=== PATIENT | female | born 1975 | race Caucasian/White ===

== ENCOUNTER 2018-05-16 13:58 | Emergency (ER) | payer BC ==
[2018-05-16] MEDS ORDERED: Albuterol/Ipratropium NEB.SOL* Albuterol 2.5 MG/Ipratropium 0.5 MG 3 ML INH ONE (15:38)
[2018-05-16] MEDS ORDERED: methylPREDNISolone SOD 40 MG* 1 ML VIAL IM ONE (15:45)
--- NOTE | 2018-05-16 15:53 | ED ---
Asthma - HPI Summary HPI Summary: Patient presents with 12 day history of coughing and chest tightness from poorly controlled asthma. She reports she was seen on May 06 ( a day after sx started) at her PCP's office - she started with symptoms of nasal congestion , sore throat, low grade fever of 100F and a dry cough. She was initially told this was viral in nature and prescribed tessalon perles and a medrol dose jia. 5 days later, she was told she may have been exposed to a bacterial infection and was offered an antibiotic which she started. She took 4 days of Zithromax but was not able to complete the course as she had been coughing so much she was causing herself to gag and vomit (last pill was yesterday). Her throat is raw and tight from poor PO intake due to persistent coughing and intermittent vomiting. No fever since onset of sx. She's had intermittent productive cough however has not had productive cough recently. She feels wiped out from excessive coughing. Reports Tessalon Perles have been helpful intermittently and Medrol dose pack (24mg on day 1 and reduces each day - has not completed the course). Doesn't feel that made any change. She uses albuterol nebulizers at home and gets temporary relief from these. She does admit she has scented aerosols etc. in her house which are used from time to time. They keep the house at about 70 F although it does drop down to 65F at times which the pt reports it too cold. Patient denies smoking, hemoptysis, headache, neck pain or stiffness, abdominal pain, increased heart rate, sweats, dizziness or syncope. She admits she takes metoprolol for an arrhythmia and this has been well controlled throughout the course of her illness. 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 Immunizations are up-to- date. Overall her asthma is fairly well controlled. She takes cetirizine, singulair, flonase and uses ventolin as needed. Admits she uses her albuterol neb at home a few times a year. No h/o recurrent bronchitis or PNA. Does have h/o 2nd hand smoke exposure as a child. Most recent CXR on 05/06/2018 was neg for PNA but pos for interstitial lung dz. She denies hemoptysis, use of hormones, recent travel/trauma, calf/leg pain, h/ o cancer or clotting d/o. - History of Current Complaint Chief Complaint: EDNauseaVomitDiarrh Stated Complaint: NAUSEA/VOMITING/COUGH Time Seen by Provider: 05/16/18 15:01 Hx Obtained From: Patient Hx Last Menstrual Period: one week ago Pain Intensity: 4 - Allergy/Home Medications Allergies/Adverse Reactions: Allergies Allergy/AdvReac Type Severity Reaction Status Date / Time apple Allergy Anaphylatic Verified 05/16/18 16:14 Shock bacitracin Allergy Blisters Verified 05/16/18 14:06 [From Neosporin ([id number])] egg Allergy Wheezing Verified 05/16/18 16:15 neomycin Allergy Blisters Verified 05/16/18 14:06 [From Neosporin ([id number])] polymyxin B Allergy Blisters Verified 05/16/18 14:06 [From Neosporin ([id number])] soy Allergy Wheezing Verified 05/16/18 16:15 Sulfa (Sulfonamide Allergy Hives Verified 05/16/18 14:06 Antibiotics) wheat Allergy Anaphylatic Verified 05/16/18 16:15 Shock Home Medications: Home Medications Aspirin 81 mg PO DAILY 05/16/18 [History Confirmed 05/16/18] Atorvastatin* 20 mg PO DAILY 05/16/18 [History Confirmed 05/16/18] Medrol Dosepak 4 MG* 4 mg PO DAILY 05/16/18 [History Confirmed 05/16/18] Metoprolol Succinate XL TAB* 25 mg PO DAILY 05/16/18 [History Confirmed 05/16/18 ] Singulair 10 MG TAB* 10 mg PO DAILY 05/16/18 [History Confirmed 05/16/18] Tessalon 100 MG CAP* 100 mg PO TID 05/16/18 [History Confirmed 05/16/18] Zithromax TAB (Z-JIA) 250 mg #6 tabs 250 mg PO DAILY 05/16/18 [History Confirmed 05/16/18] Zyrtec 10 mg PO DAILY 05/16/18 [History Confirmed 05/16/18] PMH/Surg Hx/FS Hx/Imm Hx Previously Healthy: Yes Endocrine/Hematology History: Denies: Hx Anticoagulant Therapy, Hx Blood Disorders, Hx Diabetes Cardiovascular History: Denies: Hx Hypertension, Hx Pacemaker/ICD Comment Only: Other Cardiovascular Problems/Disorders - arrhythmia Respiratory History: Reports: Hx Asthma - 20+ YEARS - uses 3-4 meds to control GI History: Reports: Hx Gastroesophageal Reflux Disease - h/o before identifying food allergies 15 yrs ago - none now History: Denies: Hx Renal Disease Sensory History: Reports: Hx Contacts or Glasses Denies: Hx Hearing Aid Opthamlomology History: Reports: Hx Contacts or Glasses Psychiatric History: Reports: Hx Depression - h/o inpt care Denies: Hx Panic Disorder - Surgical History Surgery Procedure, Year, and Place: wisdom teeth. D&C 2016 - Immunization History Immunizations Up to Date: Yes Infectious Disease History: No Infectious Disease History: Denies: History Other Infectious Disease, Traveled Outside the [place] in Last 30 Days - Family History Known Family History: Positive: Other - sister - Dawn Hdzlo - Social History Occupation: Employed Full-time Lives: With Family Alcohol Use: Rare Hx Substance Use: No Substance Use Type: Reports: None Hx Tobacco Use: No - exposure to 2nd hand smoke childhood Smoking Status (MU): Never Smoked Tobacco Review of Systems Constitutional: Other - "wiped out from coughing and puking" Negative: Fever, Chills Eyes: Negative Positive: Sore Throat. Negative: Ear Ache, Nasal Discharge Cardiovascular: Negative Negative: Palpitations, Chest Pain Positive: Cough Positive: Vomiting. Negative: Abdominal Pain, Diarrhea, Nausea Genitourinary: Negative Musculoskeletal: Negative Skin: Negative Neurological: Negative Psychological: Normal All Other Systems Reviewed And Are Negative: Yes Physical Exam Triage Information Reviewed: Yes Vital Signs On Initial Exam: Initial Vitals Temp Pulse Resp BP Pulse Ox 98.4 F 111 18 118/78 95 05/16/18 14:08 05/16/18 14:08 05/16/18 14:08 05/16/18 14:08 05/16/18 14:08 Vital Signs Reviewed: Yes Appearance: Positive: No Pain Distress, Well-Nourished, Ill-Appearing - appears mildly fatigued however she has adequate strength - sitting up, speaking in full sentences but once she starts coughing, it's dry and lasts for a few seconds -no vomiting witnessed Skin: Positive: Warm, Skin Color Reflects Adequate Perfusion, Dry Head/Face: Positive: Normal Head/Face Inspection Eyes: Positive: Normal, EOMI, Conjunctiva Clear ENT: Positive: Normal ENT inspection, Hearing grossly normal, Pharyngeal erythema - mild - no edema, TMs normal, Hoarse voice - moderate but still has some volume and clarity, Uvula midline. Negative: Nasal congestion, Nasal drainage, Tonsillar swelling, Tonsillar exudate, Trismus, Sinus tenderness Neck: Positive: Supple, Nontender, No Lymphadenopathy Respiratory/Lung Sounds: Positive: Other - pt does not take many deep breathes as this triggers coughing; coarse breath sounds heard best over Lt middle posterior chest wall -no jamie crackles or wheezing but w/o good airmovement, difficult to assess. Negative: Subcutaneous Emphysema Cardiovascular: Positive: Normal, S1, S2. Negative: Murmur, Rub, Leg Edema Left , Leg Edema Right - (-) Philippe's B/L Abdomen Description: Positive: Nontender, Soft Musculoskeletal: Positive: Normal, Strength/ROM Intact Neurological: Positive: Normal, Sensory/Motor Intact, Alert, Oriented to Person Place, Time, CN Intact II-III Psychiatric: Positive: Normal - concerned but calm and cooperative Diagnostics - Vital Signs Vital Signs Temp Pulse Resp BP Pulse Ox 05/16/18 14:08 98.4 F 111 18 118/78 95 - Laboratory Lab Results: Lab Results 05/16/18 Range/Units 14:17 Group A Strep Rapid Negative (Negative) Lab Statement: Any lab studies that have been ordered have been reviewed, and results considered in the medical decision making process. Re-Evaluation - Re-Evaluation First Eval Change: Improved - pt feels she's moving air a little easier after duoneb - peak flow went from 350-470 and pulse ox > 95% s/p duoneb - HR well controlled and appears comfortable - drinking water and no vomiting since here. Second Eval Change: Improved - pt's breathing has improved even more since solumedrol IM - smiling, less coughing, drinking well Asthma Course/Dx - Course Assessment/Plan: Pt presents w/ cough x 12 days. She was initially dx'd w/ viral bronchitis and provided w/ tessalon perles and medrol dosepak. 5 days later, she was given z-jia not because she felt worse, but because it was suspected she could have had bacterial exposure. She was not able to complete this medication as her coughing worsened and she was not able to keep much down d/t cough trigging gagging triggering vomiting. Her throat is raw/sore from coughing. A strep was assessed but neg. Vitals improved s/p duoneb and pt has some improvement of sx. CXR reveals unchanged interstitial markings. She will take her last dose of zithromax today. Will d/c w/ duonebs and prednisone. F/ u w/ PCP in 1-2 days or return to ED if worse. Education about bronchospasm prevention. Pt and partner agree w/ plan. - Diagnoses Provider Diagnoses: Asthmatic bronchitis Discharge - Sign-Out/Discharge Documenting (check all that apply): Patient Departure - Discharge Plan Condition: Stable Disposition: HOME Prescriptions: Albuterol/Ipratropium NEB.SARIAH* [Duoneb (Albuterol 2.5 MG/Ipratropium 0.5 MG)] 1 neb INH Q6H PRN #20 neb.sariah PRN Reason: Wheezing predniSONE TAB* [Deltasone 20 MG TAB*] 60 mg PO DAILY #15 tab Patient Education Materials: Acute Bronchitis (ED), Moderate and Severe Persistent Asthma (ED) Referrals: Nba Dumont MD [Primary Care Provider] - Additional Instructions: Take medication as directed - switch from albuterol neb to duoneb until sx resolve. Complete steroids - may need longer course - PCP will decide at follow- up. You may continue tessalon perles as needed. Continue singulair, flonase and cetirizine as usual. You may also try the following for pulmonary toileting to aid in healthy airway support: Nasal wash (netti pot or saline spray) for nasal congestion and/or post nasal drip Salt water throat gargles 2 x day for sore throat Drink you body weight in ounces of water every day Sleep 8+ hours per night Avoid Dairy and sugar Hot herbal/decaf tea with lemon &/or honey Chicken broth (preferably organic, free range chicken) Keep home temperature around 68F - too hot will make air difficult to breath and too cold may cause bronchospasm Use cough drops/throat lozenges Avoid smoke, candles, perfumes, colognes, scented soaps/detergents , air fresheners and cleaning chemicals as these can cause airway irritation and trigger coughing Consider starting Quercetin and Vitamin C to aid in lung tissue health/ recovery from inflammatory events Follow-up with PCP in 1-2 days for recheck - if worse in the meantime, return to ED - Billing Disposition and Condition Condition: STABLE Disposition: Home
[2018-05-16] MEDS ORDERED: Benzocaine/Menthol LOZ* 1 LOZENGE PO ONE (16:46)
--- NOTE | 2018-05-16 17:45 | RAD ---
INDICATION: Cough for 12 days. COMPARISON: Comparison is made with a prior chest x-ray study from May 06, 2018. TECHNIQUE: Dual-energy PA and lateral views of the chest were obtained. FINDINGS: The heart is within normal limits in size. Mediastinal and hilar contours appear within normal limits. There is diffuse prominence of the interstitial markings which appears unchanged. No focal infiltrate or pleural effusion is seen. IMPRESSION: PROMINENCE OF THE INTERSTITIAL MARKINGS WHICH IS UNCHANGED SUGGESTIVE OF CHRONIC INTERSTITIAL LUNG DISEASE OR AN ATYPICAL PNEUMONIA.
[2018-05-16 18:09] VITALS: BP 123/79
== END 2018-05-16 18:32 | disposition home or self-care (01) ==
LOC: ED 13:58
DX: J45.909 Unspecified asthma, uncomplicated (principal); I49.9 Cardiac arrhythmia, unspecified; Z79.899 Other long term (current) drug therapy; Z88.2 Allergy status to sulfonamides; Z88.3 Allergy status to other anti-infective agents
CPT/HCPCS: 71046; 87651; 96374; 99284; A9270-GY; J2920

== ENCOUNTER 2019-09-14 08:19 | Emergency (ER) | payer OTHER ==
--- OUTSIDE RECORDS SUMMARY | 2019-09-14 08:36 | XMS REPORT | Continuity of Care Document ---
:1975 External Reference #:[id number] Author Name Mane Azar M.D., [facility], [place] (transmitted by agent of provider Maida Larkin) Address [address] [place] [id number] Care Team Providers Name Role Phone Nba Dumont MD - Internal Care Team Information Corporate Logistics Manager [phone] Medicine Problems Active Problems Provider Date Electrocardiogram abnormal Mane Azar M.D., [facility], Onset: 03/19/2016 FASNC Dyspnea Mane Azar M.D., [facility], Onset: 03/19/2016 FAS[facility] Pre-excitation syndrome Mane Azar M.D., [facility], Onset: 03/19/2016 FASNC 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 Onset: 08/27/2016 Contusion of knee Maira Do M.D. Onset: 08/27/2016 Bipolar II disorder Oren Riley MD Onset: 06/03/2007 Note: type [address] Tolentino Atherosclerotic heart disease of Mane Azar M.D., [facility], Onset: 2018 [place] coronary artery with FASNC unspecified angina pectoris Social History Type Date Description Comments Sex Unknown Tobacco Use Start: Unknown Never Smoked Cigarettes Smoking Status Reviewed: 08/23/19 Never Smoked Cigarettes ETOH Use Occasionally consumes wine ETOH Use Occasionally consumes liquor Tobacco Use Start: Unknown Patient has never smoked Recreational Drug Use Denies Drug Use Exercise Type/Frequency Exercises sporadically Allergies, Adverse Reactions, Alerts Active Allergies Reaction Severity Comments Date Apple 03/11/2016 Egg 03/11/2016 Neosporin 03/11/2016 Sulfa Antibiotics 03/11/2016 Soy 03/11/2016 Wheat 03/11/2016 Medications Active Medications SIG Qnty Indications Ordering Date Provider Toprol XL 1 tablet po qday 90tabs [facility] Robles 04/28/2016 25mg Tablets Bartolome Azar, ER 24HR CHERELLE MAO Lipitor 2 tabs by mouth 90tabs [facility] Travis 04/28/2016 20mg Tablets every night at Bartolome Azar, bedtime CHERELLE MAO Aspir-Low 1 by mouth every 30tabs [place] Robles 04/28/2016 81mg Tablets day Bartolome Azar, CHERELLE WALKER FACC Buspirone HCL 1 by mouth twice a Unknown 30mg day Morning and Tablets afternoon Vitamin C 1 cap po daily Unknown 500mg Capsules Mucinex taken as needed Unknown Famotidine 1 tablet po daily Unknown 40mg Omeprazole 1 by mouth every 30caps Unknown 40mg day Capsules DR Melatonin every night at Unknown 10mg Chewtabs bedtime as needed Montelukast Sodium 1 tablet po daily Unknown 10mg Tablets Acetaminophen 1-2 tabs as needed Unknown Fluticasone 2 sprays each Unknown Propionate nostril daily as 50mcg/Act needed Suspension Lactase Enzyme Fast as needed Unknown Acting 9000Unit Tablets Probiotic 1 by mouth every Unknown Capsules day as needed when taking antibiotic Vitamin D3 High 1 by mouth every Unknown Potency day (last taken 5000Unit Spring 2017) Capsules Proair HFA 2 puffs by mouth Unknown 108(90Base) every 4 hours as mcg/Act Aerosol needed Lamotrigine 1 by mouth once a Unknown 100mg day Tablets Ipratropium [place] instill 2 sprays 30units Unknown in each nostril 0.03% Solution twice a day, as needed Fluoxetine HCL 2 caps by mouth Unknown 40mg every day Capsules Cetirizine HCL 1 tablet by mouth Unknown 10mg daily in the Chewtabs morning Medications Administered in Office Medication SIG Qnty Indications Ordering Provider Date Depomedrol 40MG Maira Do M.D. 09/10/2016 Injection Technetium TC 99M Mane Azar M.D., 04/28/2016 Tetrofosmin, Per Unit Dose FACC, FASNC Up To 40 Millicuries Injection Immunizations Description No Information Available Vital Signs Date Vital Result Comment 08/23/2019 1:33pm Height 65.5 inches 5'5.50" Weight 171.00 lb with out shoes Heart Rate 54 /min BP Systolic Sitting 98 mmHg Lue reg cuff BP Diastolic Sitting 70 mmHg Lue reg cuff BP Systolic Standing 102 mmHg Lue reg cuff BP Diastolic Standing 70 mmHg Lue reg cuff Respiratory Rate 15 /min BMI (Body Mass Index) 28.0 kg/m2 08/24/2018 12:58pm Height 65 inches 5'5" Weight 162.00 lb with shoes Heart Rate 56 /min BP Systolic Sitting 90 mmHg Lue reg cuff BP Diastolic Sitting 70 mmHg Lue reg cuff BP Systolic Standing 100 mmHg Lue reg cuff BP Diastolic Standing 70 mmHg Lue reg cuff Respiratory Rate 16 /min BMI (Body Mass Index) 27.0 kg/m2 Results Test Acquired Date Facility Test Result H/L Range Note CBC Auto 08/13/[facility] White Blood 7.2 10^3/uL Normal 3.5-10.[address] [place] [address] [phone] Red Blood Count 4.96 10^6/uL High 3.70-4.87 Hemoglobin 14.9 g/dL Normal 12.0-16.0 Hematocrit 45 % Normal 35-47 Mean Corpuscular Volume 90 fL Normal 80-97 Mean Corpuscular Hemoglobin 30 pg Normal 27-31 Mean Corpuscular HGB Conc 33 g/dL Normal 31-36 Red Cell Distribution Width 14 % Normal 10-15 Platelet Count 258 10^3/uL Normal 150-450 Mean Platelet Volume 8.3 fL Normal 7.4-10.4 Abs Neutrophils 4.7 10^3/uL Normal 1.5-7.7 Abs Lymphocytes 1.6 10^3/uL Normal 1.0-4.8 Abs Monocytes 0.4 10^3/uL Normal 0-0.8 Abs Eosinophils 0.4 10^3/uL Normal 0-0.6 Abs Basophils 0.0 10^3/uL Normal 0-0.2 Abs Nucleated RBC 0.0 10^3/uL Granulocyte % 65.7 % Lymphocyte % 22.2 % Monocyte % 6.2 % Eosinophil % 5.4 % Basophil % 0.5 % Nucleated Red Blood Cells % 0.1 Basic Metabolic 08/13/2019 [facility] Sodium 139 mmol/L Normal 135-145 Panel [address] [place] [address] [phone] Potassium 4.4 mmol/L Normal 3.5-5.0 Chloride 110 mmol/L Normal 101-111 Co2 Carbon Dioxide 22 mmol/L Normal 22-32 Anion Gap 7 mmol/L Normal 2-11 Glucose 97 mg/dL Normal 70-100 Blood Urea Nitrogen 18 mg/dL Normal 6-24 Creatinine 0.90 mg/dL Normal 0.51-0.95 BUN/Creatinine Ratio 20.0 Normal 8-20 Calcium 9.7 mg/dL Normal 8.6-10.3 Egfr Non- 68.3 >60 Egfr 82.7 >60 1 Lipid Profile 08/13/2019 [facility] Triglycerides 164 mg/dL 2 (Trig/Chol/HDL) [address] [place] [address] [phone] Cholesterol 170 mg/dL 3 HDL Cholesterol 38.7 mg/dL 4 LDL Cholesterol 99 mg/dL 5 Laboratory test 08/13/2019 [facility] Alt (SGPT) 29 U/L Normal 7-52 finding [address] [place] [address] [phone] FLP/Alt Panel 06/27/2019 [facility] <pending> [address] [place] [address] [phone] 1 Because ethnic data is not always readily available, this report includes an eGFR for both -Americans and non- Americans. The National Kidney Disease Education Program (NKDEP) does not endorse the use of the MDRD equation for patients that are not between the ages of 18 and 70, are , have extremes of body size, muscle mass, or nutritional status, or are non- or non-. According to the National Kidney Foundation, irrespective of diagnosis, the stage of the disease is based on the level of kidney function: Stage Description GFR(mL/min/1.73 m(2)) 1 Kidney damage with normal or decreased GFR 90 2 Kidney damage with mild decrease in GFR 60-89 3 Moderate decrease in GFR 30-59 4 Severe decrease in GFR 15-29 5 Kidney failure <15 (or dialysis) 2 Desirable: <150 Borderline High: 150-199 High: 200-499 Very High: >500 3 Desirable: <200 Borderline High: 200-239 High: >239 4 Low: <40 Desirable: 40-60 High: >60 5 Desirable: <100 Near Optimal: 100-129 Borderline High: 130-159 High: 160-189 Very High: >189 Procedures Date Code Description Status 08/23/2019 80571 EKG Tracing & Interpretation Completed Medical Devices Description No Information Available Encounters Description No Information Available Assessments Date Code Description Provider 08/23/2019 I25.119 Atherosclerotic heart disease of Mane Azar M.D., [place], [place] coronary artery with [place] unspecified angina pectoris 08/23/2019 R06.00 Dyspnea, unspecified Mane Azar M.D., [place], CHERELLE Plan of Treatment Future Appointment(s):10/12/2019 8:45 am - Mane Azar M.D., [place], CHERELLE at [facility]09/06/2019 1:00 pm - Traveling ECHO 1 at [facility]09/19/2019 9:45 am - Mane Azar M.D., CHERELLE MAO at [facility]08/23/2019 - Mane Azar M.D., CHERELLE MAOI25.119 Atherosclerotic heart disease of [place] coronary artery with unspecified angina pectorisNew Orders:Stress Test, Exercise Nuclear, Scheduled: 09/19/19Comments: As discussed, we will further evaluate your heart with a repeat stress test and echo.R06.00 Dyspnea, unspecifiedNew Orders:Echocardiogram, Scheduled: Follow up:after NEM and TOE Functional Status Description No Information Available Mental Status Description No Information Available Referrals Description No Information Available
[2019-09-14 09:12] LABS: ABS Eosinophils 0.1 10^3/ul (0-0.6); ABS Lymphocytes 1.4 10^3/ul (1.0-4.8); ABS Monocytes 1.2 10^3/ul (0-0.8); ABS Neutrophils 4.4 10^3/ul (1.5-7.7); Hematocrit 46 % (35-47); Hemoglobin 16.1 g/dL (12.0-16.0); Lymphocyte % 20.1 %; Mean Corpuscular HGB Conc 35 g/dL (31-36); Mean Corpuscular Hemoglobin 31 pg (27-31); Mean Corpuscular Volume 88 fL (80-97); Mean Platelet Volume 8.2 fL (7.4-10.4); Nucleated Red Blood Cells % 0.2; Platelet Count 190 10^3/uL (150-450); Red Blood Count 5.18 10^6 /uL (3.70-4.87); Red Cell Distribution Width 13 % (10-15); White Blood Count 7.2 10^3/uL (3.5-10.8)
[2019-09-14] MEDS ORDERED: NS 0.9% 1000 ML** 1,000 ML IV ONE (09:15)
[2019-09-14] MEDS ORDERED: Ondansetron INJ* 2 MG/ML VIAL IV ONE (09:15)
--- NOTE | 2019-09-14 09:17 | ED ---
Complex/Multi-Sys Presentation - HPI Summary HPI Summary: Patient is a 44 y/o F presenting to [facility] with complaints of productive cough and N/V since 09/10/19. The patient reports that her vomiting worsened last evening, 09/13/19, and that she was unable to keep any food or pills down. Patient notes that she had been diagnosed with bronchitis by her PCP a few days ago. She was prescribed Zithromax. Patient has also been taking advair, fluticasone-salmeterol, tessalon pearls, albuterol nebulizer, and Tylenol. She reports experiencing some abdominal pain when vomiting and denies diarrhea. On triage, pain is rated 0/10, nothing is noted to aggravate/alleviate Sx. PMHx of asthma, arrhythmia, and GERD noted. She denies PSHx. Patient endorses rare alcohol usage but denies tobacco and substance usage. FMHx of HTN reported. Home medications and allergies are reviewed. - History Of Current Complaint Chief Complaint: EDGeneral Time Seen by Provider: 09/14/19 08:51 Hx Obtained From: Patient Onset/Duration: Lasting Days, Still Present, Worse Since Timing: Constant, Days Severity Currently: None - pain denied Aggravating Factor(s): vomiting aggravates abdominal pain Alleviating Factor(s): nothing Associated Signs And Symptoms: Positive: Cough, Nausea, Vomiting, Abdominal Pain - when vomiting. Negative: Diarrhea - Allergies/Home Medications Allergies/Adverse Reactions: Allergies Allergy/AdvReac Type Severity Reaction Status Date / Time apple Allergy Anaphylatic Verified 09/14/19 08:31 Shock bacitracin Allergy Blisters Verified 09/14/19 08:31 [From Neosporin ([id number])] egg Allergy Wheezing Verified 09/14/19 08:31 neomycin Allergy Blisters Verified 09/14/19 08:31 [From Neosporin ([id number])] polymyxin B Allergy Blisters Verified 09/14/19 08:31 [From Neosporin ([id number])] soy Allergy Wheezing Verified 09/14/19 08:31 Sulfa (Sulfonamide Allergy Hives Verified 09/14/19 08:31 Antibiotics) wheat Allergy Anaphylatic Verified 09/14/19 08:31 Shock Home Medications: Home Medications Albuterol inh POWDER (NF) [Proair Respiclick] 2 puff INH Q4H PRN 09/14/19 [ History Confirmed 09/14/19] Aspirin EC TAB* [Ecotrin EC Low Dose 81 MG*] 81 mg PO DAILY 09/14/19 [History Confirmed 09/14/19] Atorvastatin* [Lipitor 20 MG*] 40 mg PO DAILY 09/14/19 [History Confirmed ] Azithromycin TAB* [Zithromax TAB (Z-JIA) 250 mg #6 tabs] 250 mg PO DAILY [History Confirmed 09/14/19] Benzonatate CAP* [Tessalon 100 MG CAP*] 100 mg PO TID 09/14/19 [History Confirmed 09/14/19] Cetirizine* [ZyrTEC 10 MG TAB*] 10 mg PO DAILY 09/14/19 [History Confirmed 09/14] Famotidine TAB 40 MG(NF) [Pepcid TAB 40 MG(NF)] 40 mg PO DAILY 09/14/19 [ History Confirmed 09/14/19] Fluticasone-Salmeterol 250-50* [Advair Diskus 250-50*] 1 puff INH BID 09/14/19 [ History Confirmed 09/14/19] Guaifenesin/Dextromethorphan [Mucinex Dm ER 1,200-60 mg Tab] 1 each PO BID 09/14 [History Confirmed 09/14/19] Ipratropium Br (Nf)0.03% Nasal [Ipratropium [place]] 0.06 % BOTH NARES BID 09/14 [History Confirmed 09/14/19] Metoprolol Succinate XL TAB* [Toprol XL TAB*] 25 mg PO DAILY 09/14/19 [History Confirmed 09/14/19] Montelukast Sodium TAB* [Singulair 10 MG TAB*] 10 mg PO DAILY 09/14/19 [History Confirmed 09/14/19] Omeprazole (Nf) [Prilosec (NF)] 40 mg PO DAILY 09/14/19 [History Confirmed 09/14] Saline NASAL SPRAY 0.65%* [Sodium Chloride 0.65% Nasal [place]*] 2 spray BOTH NARES .5X/DAY PRN 09/14/19 [History Confirmed 09/14/19] Singulair 4mg Oral Granules 1 pkt PO DAILY 09/14/19 [History Confirmed 09/14/19] PMH/Surg Hx/FS Hx/Imm Hx Endocrine/Hematology History: Denies: Hx Anticoagulant Therapy, Hx Blood Disorders, Hx Diabetes Cardiovascular History: Reports: Other Cardiovascular Problems/Disorders - arrythmia and blockage , on meds Denies: Hx Hypertension, Hx Pacemaker/ICD Respiratory History: Reports: Hx Asthma - 20+ YEARS - uses 3-4 meds to control GI History: Reports: Hx Gastroesophageal Reflux Disease - h/o before identifying food allergies 15 yrs ago - none now History: Denies: Hx Renal Disease Sensory History: Reports: Hx Contacts or Glasses Denies: Hx Hearing Aid Opthamlomology History: Reports: Hx Contacts or Glasses Psychiatric History: Reports: Hx Depression - h/o inpt care Denies: Hx Panic Disorder - Surgical History Surgery Procedure, Year, and Place: wisdom teeth. D&C 2015 Infectious Disease History: No Infectious Disease History: Denies: History Other Infectious Disease, Traveled Outside the [place] in Last 30 Days - Family History Known Family History: Positive: Other - sister - Elhers Danlo - Social History Alcohol Use: Rare Hx Substance Use: No Substance Use Type: Reports: None Hx Tobacco Use: No - exposure to 2nd hand smoke childhood Smoking Status (MU): Never Smoked Tobacco Review of Systems Positive: Cough Positive: Abdominal Pain - when vomiting , Vomiting, Nausea. Negative: Diarrhea All Other Systems Reviewed And Are Negative: Yes Physical Exam - Summary Physical Exam Summary: VITAL SIGNS: Reviewed. GENERAL: Patient is a well-developed and nourished female who is lying comfortable in the stretcher. Patient is not in any acute respiratory distress. HEAD AND FACE: No signs of trauma. No ecchymosis, hematomas or skull depressions. No sinus tenderness. EYES: PERRLA, EOMI x 2, No injected conjunctiva, no nystagmus. EARS: Hearing grossly intact. Ear canals and tympanic membranes are within normal limits. MOUTH: Oropharynx within normal limits. NECK: Supple, trachea is midline, no adenopathy, no JVD, no carotid bruit, no c- spine tenderness, neck with full ROM. CHEST: Symmetric, no tenderness at palpation. LUNGS: Coarse breath sounds. No wheezing or crackles. CVS: Regular rate and rhythm, S1 and S2 present, no murmurs or gallops appreciated. ABDOMEN: Soft, non-tender. No signs of distention. No rebound, no guarding, and no masses palpated. Bowel sounds are normal. EXTREMITIES: FROM in all major joints, no edema, no cyanosis or clubbing. NEURO: Alert and oriented x 3. No acute neurological deficits. Speech is normal and follows commands. SKIN: Dry and warm. Triage Information Reviewed: Yes Vital Signs On Initial Exam: Initial Vitals Temp Pulse Resp BP Pulse Ox 97.4 F 75 16 116/80 99 09/14/19 08:25 09/14/19 08:25 09/14/19 08:25 09/14/19 08:25 09/14/19 08:25 Vital Signs Reviewed: Yes Procedures - Sedation Patient Received Moderate/Deep Sedation with Procedure: No Diagnostics - Vital Signs Vital Signs Temp Pulse Resp BP Pulse Ox 09/14/19 08:25 97.4 F 75 16 116/80 99 - Laboratory Result Diagrams: 09/14/19 08:57 09/14/19 08:57 Lab Statement: Any lab studies that have been ordered have been reviewed, and results considered in the medical decision making process. - Radiology CXR Radiology Interpretation Completed By: Radiologist Summary of Radiographic Findings: IMPRESSION: STABLE HYPERINFLATION SUGGESTIVE OF COPD WITH PULMONARY INTERSTITIAL OPACIFICATION. SUGGESTIVE OF MILD FIBROTIC CHANGE. THIS REPORT WAS REVIEWED BY DR. ROSEN. - EKG 0922 Cardiac Rate: NL - rate of 72 BPM EKG Rhythm: Sinus Rhythm Summary of EKG Findings: EKG showed NSR with rate of 72 BPM, ST depression in Lead I, II, aVF, V3-V6. ED physician has reviewed and interpreted this EKG. 1158 Cardiac Rate: NL - rate of 69 BPM EKG Rhythm: Sinus Rhythm EKG Comparison: No Significant Change - Patient's EKG was discussed with Dr. Azar, Dr. Azar reports no significant changes compared to prior EKGs done in his office. Summary of EKG Findings: EKG showed NSR with rate of 69 BPM, ST depressions in leads I, II, aVF, and V3-V6. Patient's EKG was discussed with Dr. Azar, Dr. Azar reports no significant changes compared to prior EKGs done in his office. Complex Multi-Symp Course/Dx Assessment/Plan: Patient is a 44 y/o F presenting to [facility] with complaints of productive cough and N/V since 12/7/19. The patient reports that her vomiting worsened last evening, 09/13/19, and that she was unable to keep any food or pills down. Patient notes that she had been diagnosed with bronchitis by her PCP a few days ago. She was prescribed Zithromax. Patient has also been taking advair, fluticasone-salmeterol, tessalon perles, albuterol nebulizer, and Tylenol. She reports experiencing some abdominal pain when vomiting and denies diarrhea. On triage, pain is rated 0/10, nothing is noted to aggravate/ alleviate Sx. PMHx of asthma, arrhythmia, and GERD noted. She denies PSHx. Patient endorses rare alcohol usage but denies tobacco and substance usage. FMHx of HTN reported. Home medications and allergies are reviewed. In the ED course the patient was placed in a monitor and storage bin tender, IV access was obtained, IV fluids started. She was given Zofran since she is vomiting. Blood work without any significant abnormality except for hemoglobin 16.1. Sodium 132, potassium 3.3, glucose 138, and CRP 58.6. CXR IMPRESSION: STABLE HYPERINFLATION SUGGESTIVE OF COPD WITH PULMONARY INTERSTITIAL OPACIFICATION SUGGESTIVE OF MILD FIBROTIC CHANGE. EKG times 2 in the ED: normal sinus rhythm no ST elevations, ST depressions in leads 1, 2, aVF, and V3-V6. The patient continues to be asymptomatic and has no chest pain. I discussed my findings and test results with Dr. Azar patients accountant assistant, and he reviewed the EKG and reports the EKG in the ED is similar to previous EKGs done in his office. She had an echocardiogram done in the past and it was normal. The patient is scheduled to have a stress test. Sacrum troponin is 0.00. Patient was given SoluMedroland Duonebs and her symptoms improved. I discussed all the findings and test results with the patient. Patient was instructed to return to the emergency room immediately if any of the symptoms return or worsen . Plan of care was discussed with the patient and understands and agrees. All questions were answered at patient satisfaction. There were no further complaints or concerns. Lung exam before discharge: CTA B/L. Good air exchange. No wheezing or crackles heard. CVS: S1 and S2 present. No murmurs appreciated. Patient is alert and oriented x 3. Patient is hemodynamically stable. 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 - Diagnoses Provider Diagnoses: Asthma exacerbation Discharge ED - Sign-Out/Discharge Documenting (check all that apply): Patient Departure - Discharge Plan Condition: Stable Disposition: HOME Prescriptions: guaiFENesin/CODIENE 100mg/10mg [Robitussin AC 100Mg/10Mg in 5 ml] 10 ml PO Q8H PRN #1 udc MDD 30 ml PRN Reason: Cough predniSONE TAB* [Deltasone 20 MG TAB*] 40 mg PO DAILY #8 tab Patient Education Materials: Asthma (ED) Referrals: Nba Dumont MD [Primary Care Provider] - Additional Instructions: Follow up with your primary care provider in 2-3 days. Return to the ED if your experience new or worsened symptoms - Billing Disposition and Condition Condition: STABLE Disposition: Home - Attestation Statements Document Initiated by Ceasaribe: Yes Documenting Scribe: CHIKI MAHAN Provider For Whom Harry is Documenting (Include Credential): OCTAVIO ROSEN MD Scribe Attestation: CHIKI Greenberg, scribed for OCTAVIO ROSEN MD on 09/15/19 at 1055. Scribe Documentation Reviewed: Yes Provider Attestation: The documentation as recorded by the CHIKI white accurately reflects the service I personally performed and the decisions made by OCTAVIO ann MD Status of Scribe Document: Viewed
[2019-09-14 09:24] LABS: Albumin 4.3 g/dL (3.2-5.2); Albumin/Globulin Ratio 1.8 (1-3); BUN/Creatinine Ratio 7.8 (8-20); C Reactive Protein 58.61 mg/L (<8.01); Calcium 9.5 mg/dL (8.6-10.3); EGFR African American 82.7 (>60); EGFR Non-African American 68.3 (>60); Globulin 2.4 g/dL (2-4); Potassium 3.3 mmol/L (3.5-5.0); Total Protein 6.7 g/dL (6.4-8.9)
[2019-09-14 09:33] LABS: Influenza A Molecular NEGATIVE (Negative); Influenza B Molecular NEGATIVE (Negative)
[2019-09-14 10:00] LABS: CKMB ng/mL 0.7 ng/mL (0.6-6.3)
[2019-09-14] MEDS ORDERED: Potassium Chloride* LIQUID 20 MEQ/15 ML UDC PO ONE (10:01)
[2019-09-14 10:18] LABS: Magnesium 1.8 mg/dL (1.9-2.7)
[2019-09-14] MEDS ORDERED: Albuterol/Ipratropium NEB.SOL* Albuterol 2.5 MG/Ipratropium 0.5 MG 3 ML INH ONE (12:16)
[2019-09-14] MEDS ORDERED: methylPREDNISolone 125 MG* 2 ML VIAL IV ONE (12:16)
[2019-09-14 13:58] VITALS: BP 123/75
== END 2019-09-14 14:09 | disposition home or self-care (01) ==
LOC: ED 08:19
DX: J45.901 Unspecified asthma with (acute) exacerbation (principal); K21.9 Gastro-esophageal reflux disease without esophagitis; I49.9 Cardiac arrhythmia, unspecified; F32.9 Major depressive disorder, single episode, unspecified; Z79.899 Other long term (current) drug therapy; Z79.82 Long term (current) use of aspirin; Z88.2 Allergy status to sulfonamides; Z88.8 Allergy status to other drugs, medicaments and biological substances
CPT/HCPCS: 36415; 71046; 80053; 82553; 83605; 83735; 84484; 85025; 86140; 93005; 96361; 96374; 96375; 99283; A9270-GY; J2405; J2930